=== PATIENT | male | born 2005 | race Caucasian/White ===

== ENCOUNTER 2023-09-18 12:26 | Emergency (ER) | payer OTHER ==
[~2023-09-18] VITALS: Ht 190.5 cm; Wt 95.5 kg
[2023-09-18] MEDS ORDERED: IBUPROFEN 800 MG TAB PO ONE (15:30)
[2023-09-18] MEDS ORDERED: CYCLOBENZAPRINE 10MG TABLET PO ONE (15:30)
[2023-09-18] MEDS ORDERED: BACL10TA2 PO (16:17)
[2023-09-18] MEDS ORDERED: PERC5TAB12 PO (16:17)
[2023-09-18 16:23] VITALS: BP 120/68; TEMP 98.2; O2SAT 99
== END 2023-09-18 16:29 | disposition home or self-care (01) ==
LOC: M ED 12:26
DX: M54.2 Cervicalgia (principal); M54.6 Pain in thoracic spine; R07.89 Other chest pain

== ENCOUNTER 2023-09-27 12:37 | Emergency (ER) | payer OTHER ==
[~2023-09-27] VITALS: Ht 190.5 cm; Wt 86.0 kg
[~2023-09-27 12:37] MED LIST: BACL10TA2 PO; PERC5TAB12 PO
[2023-09-27] MEDS ORDERED: LIDOCAINE 5% (LIDODERM) PATCH TD ONE (14:35)
[2023-09-27] MEDS ORDERED: methylPREDNISolone 125MG 2ML VIAL IV ONE (14:35)
[2023-09-27] MEDS ORDERED: diazePAM 10MG/2ML SYRINGE IV ONE ×2 (14:35→17:30)
[2023-09-27] MEDS ORDERED: KETOROLAC 30 MG/ML 1ML VIAL IV ONE (14:35)
[2023-09-27 15:16] LABS: VENOUS BASE EXCESS -0.5 (-2.0-2.0); VENOUS HCO3 26.8 MMOL/L (23.0-27.0); VENOUS O2 SATURATION 42.1 % (60.0-80.0); VENOUS PARTIAL PRESSURE CO2 53.9 mmHg (38.0-50.0); VENOUS PARTIAL PRESSURE O2 24.8 mmHg (30.0-50.0); VENOUS PH 7.314 UNITS (7.330-7.430); VENOUS STANDARD HCO3 22.6 MMOL/L; VENOUS TOTAL CO2 28.4 MMOL/L (24.0-28.0)
[2023-09-27 15:26] LABS: BASO % 0.4 % (0.0-1.0); EOS # 0.3 10^3/uL (0.0-0.5); HEMATOCRIT 44.8 % (42.0-52.0); LYMPH # 2.7 10^3/uL (1.5-5.0); LYMPH % 35.1 % (24.0-44.0); MEAN CORPUSCULAR HEMOGLOBIN 28.7 pg (27.0-33.0); MEAN CORPUSCULAR HGB CONC 33.5 g/dl (32.0-36.5); MEAN CORPUSCULAR VOLUME 85.7 fl (80.0-96.0); MONO # 0.5 10^3/uL (0.0-0.8); MONO % 5.8 % (2.0-8.0); NEUTROPHILS # 4.2 10^3/uL (1.5-8.5); NEUTROPHILS % 54.4 % (36.0-66.0); PLATELET COUNT, AUTOMATED 258 10^3/uL (150-450); RED BLOOD COUNT 5.23 10^6/uL (4.30-6.10); WHITE BLOOD COUNT 7.7 10^3/uL (4.0-10.0)
[2023-09-27] MEDS ORDERED: ISOVUE-370 76% 100ML VIAL As Ordered ONE (16:19)
[2023-09-27] MEDS ORDERED: NAPR-837 PO (17:32)
[2023-09-27] MEDS ORDERED: MEDR4PAK PO (17:32)
[2023-09-27] MEDS ORDERED: ASPE4PAD TOP (17:32)
[2023-09-27] MEDS ORDERED: METH-1165 PO (17:32)
[2023-09-27 17:39] VITALS: BP 133/62; TEMP 97.8; O2SAT 100
== END 2023-09-27 17:44 | disposition home or self-care (01) ==
LOC: M ED 12:37
DX: M54.2 Cervicalgia (principal); M54.50 Low back pain, unspecified; R07.9 Chest pain, unspecified; Z79.899 Other long term (current) drug therapy; Z79.52 Long term (current) use of systemic steroids
CPT/HCPCS: 71260; 72131; 80047; 82803; 85025; 94010; 96374; 96375; 99284; J1885; J2930; J3360; Q9967

== ENCOUNTER 2024-10-03 20:06 | Emergency (ER) | payer OTHER ==
[~2024-10-03] VITALS: Ht 190.5 cm; Wt 87.2 kg
[~2024-10-03 20:06] MED LIST changes: +ASPE4PAD TOP; +MEDR4PAK PO; +METH-1165 PO; +NAPR-837 PO
[2024-10-03] MEDS ORDERED: ACET-907 PO (21:11)
[2024-10-03 22:17] VITALS: TEMP 99.2
[2024-10-04 02:15] VITALS: O2SAT 98
[2024-10-04] MEDS: MAGIC MOUTHWASH 5ML ORAL SYRINGE SS ONE (02:40)
[2024-10-04] MEDS: IBUPROFEN 600MG TAB PO ONE (02:40)
[2024-10-04 02:42] LABS: BASO # 0.1 10^3/uL (0.0-0.2); BASO % 0.5 % (0.0-1.0); EOS # 0.4 10^3/uL (0.0-0.5); HEMOGLOBIN 14.2 g/dl (13.5-17.5); LYMPH # 2.8 10^3/uL (1.5-5.0); LYMPH % 21.1 % (24.0-44.0); MEAN CORPUSCULAR HEMOGLOBIN 28.9 pg (27.0-33.0); MEAN CORPUSCULAR HGB CONC 33.8 g/dl (32.0-36.5); MEAN CORPUSCULAR VOLUME 85.4 fl (80.0-96.0); MONO # 1.5 10^3/uL (0.0-0.8); MONO % 11.1 % (2.0-8.0); NEUTROPHILS # 8.5 10^3/uL (1.5-8.5); NEUTROPHILS % 64.1 % (36.0-66.0); PLATELET COUNT, AUTOMATED 207 10^3/uL (150-450); RED BLOOD COUNT 4.92 10^6/uL (4.30-6.10); WHITE BLOOD COUNT 13.3 10^3/uL (4.0-10.0)
[2024-10-04 03:13] LABS: MONO SCRN NEGATIVE (NEGATIVE)
[2024-10-04] MEDS ORDERED: MAGICMW SSP (03:37)
[2024-10-04 03:51] VITALS: BP 104/65
== END 2024-10-04 04:13 | disposition home or self-care (01) ==
LOC: M ED 20:06
DX: J02.9 Acute pharyngitis, unspecified (principal)